=== PATIENT | female | born 1965 | race Caucasian/White ===

== ENCOUNTER → 2018-08-30 | Outpatient (CLI) | payer OTHER ==
[~2018-08-30] MED LIST: LEVSOD25 PO
== END | disposition home or self-care (01) ==
LOC: PLD 07:15 → LAB SHORT 07:15
DX: N92.0 Excessive and frequent menstruation with regular cycle (principal)
CPT/HCPCS: 88305

== ENCOUNTER 2018-09-07 12:49 | Day surgery (SDC) | payer OTHER ==
[~2018-09-07] VITALS: Ht 175.3 cm; Wt 101.2 kg
== END 2018-09-07 15:03 | disposition home or self-care (01) ==
LOC: ORSCSDS 12:49
PROVIDERS: Internal Medicine Gastroenterology
PROC: 0DJD8ZZ Inspection of Lower Intestinal Tract, Via Natural or Artificial Opening Endoscopic (ICD-10-PCS; principal; 2018-09-07 14:15)
DX: R19.4 Change in bowel habit (principal); E03.9 Hypothyroidism, unspecified; D50.9 Iron deficiency anemia, unspecified; Z79.899 Other long term (current) drug therapy
CPT/HCPCS: J2704; J7120

== ENCOUNTER 2018-10-08 08:22 | Day surgery (SDC) | payer OTHER ==
[~2018-10-08] VITALS: Ht 172.7 cm; Wt 102.2 kg
[~2018-10-08 08:22] MED LIST changes: +IRON PO
--- NOTE | 2018-10-08 08:52 | NUR ---
History, Chart, Medications and Allergies reviewed before start of procedure.Lungs clear T/O to Auscultation.
[2018-10-08 16:14] LABS: BASOPHILS ABSOLUTE AUTO 0.01 K/mm3 (0.00-0.23); BASOPHILS PERCENT AUTO 0 % (0-2); EOSINOPHILS PERCENT AUTO 0 % (0-6); Hematocrit 35.9 % (33.0-51.0); Hemoglobin 11.3 g/dL (11.5-16.0); IMMATURE GRAN ABSOLUTE AUTO 0.06 K/mm3 (0.00-0.10); IMMATURE GRAN PERCENT AUTO 0 % (0-1); LYMPHOCYTES ABSOLUTE AUTO 0.37 K/mm3 (0.84-5.20); LYMPHOCYTES PERCENT AUTO 2 % (21-46); MONOCYTES ABSOLUTE AUTO 0.11 K/mm3 (0.16-1.47); MONOCYTES PERCENT AUTO 1 % (4-13); Mean Corpuscular HGB 26.8 pg (26.0-34.0); Mean Corpuscular HGB Conc 31.5 g/dL (31.5-36.5); Mean Corpuscular Volume 85 fL (80-100); Mean Platelet Volume 10.1 fL (9.1-12.4); NEUTROPHILS ABSOLUTE AUTO 15.16 K/mm3 (1.96-9.15); NEUTROPHILS PERCENT AUTO 96 % (41-73); Platelet Count 224 K/mm3 (150-400); RDW Coefficient Variation 19.8 % (11.7-14.2); RDW Standard Deviation 62.6 fL (35.1-46.3); Red Blood Cell Count 4.21 M/mm3 (3.80-5.20); White Blood Cell Count 15.71 K/mm3 (4.00-11.30)
--- NOTE | 2018-10-08 18:47 | NUR ---
SHIFT SUMMARY PT HAS DONE WELL POST OP. HAS DECLINED PAIN OR NAUSEA MEDS. TOLERATING DIET WELL. OUT OF BED x 1. NO VAG BLEEDING.
[2018-10-09 05:49] LABS: BASOPHILS ABSOLUTE AUTO 0.02 K/mm3 (0.00-0.23); BASOPHILS PERCENT AUTO 0 % (0-2); EOSINOPHILS ABSOLUTE AUTO 0.02 K/mm3 (0.00-0.68); EOSINOPHILS PERCENT AUTO 0 % (0-6); Hematocrit 29.6 % (33.0-51.0); Hemoglobin 9.6 g/dL (11.5-16.0); IMMATURE GRAN ABSOLUTE AUTO 0.05 K/mm3 (0.00-0.10); IMMATURE GRAN PERCENT AUTO 1 % (0-1); LYMPHOCYTES ABSOLUTE AUTO 1.32 K/mm3 (0.84-5.20); LYMPHOCYTES PERCENT AUTO 12 % (21-46); MONOCYTES ABSOLUTE AUTO 0.57 K/mm3 (0.16-1.47); MONOCYTES PERCENT AUTO 5 % (4-13); Mean Corpuscular HGB 27.5 pg (26.0-34.0); Mean Corpuscular HGB Conc 32.4 g/dL (31.5-36.5); Mean Corpuscular Volume 85 fL (80-100); Mean Platelet Volume 10.4 fL (9.1-12.4); NEUTROPHILS ABSOLUTE AUTO 9.08 K/mm3 (1.96-9.15); NEUTROPHILS PERCENT AUTO 82 % (41-73); Platelet Count 186 K/mm3 (150-400); RDW Coefficient Variation 19.8 % (11.7-14.2); RDW Standard Deviation 62.7 fL (35.1-46.3); Red Blood Cell Count 3.49 M/mm3 (3.80-5.20); White Blood Cell Count 11.06 K/mm3 (4.00-11.30)
--- NOTE | 2018-10-09 07:36 | NUR ---
POD 1 S/P LAVH. PT VSS T/O NIGHT. DRESSINGS CDI, SCANT VAGINAL BLEEDING. PAIN MGD W/TORIDOL W/REP RELIEF; PT DECLINED NEED FOR ADDITIONAL PAIN MEDS. PT CASS REG PO, REP NO FLATUS YET THIS AM. OLSON CATH D/C'D, AWAITING VOID. IVF CONT. IN THIS AM, REP GIVEN TO DAY RN.
[2018-10-09] MEDS ORDERED: CLIMARA1 EACH TD (07:45)
[2018-10-09] MEDS ORDERED: IBUP800 PO (07:46)
[2018-10-09] MEDS ORDERED: ACET325 PO (09:16)
--- NOTE | 2018-10-09 10:27 | NUR ---
DISCHARGE PT HAS VOIDED x 2, TOLERATING DIET, AMBULATING, PAIN TOLERABLE. STATES UNDERSTANDING OF MEDS, WOUND CARE, & F/U.
== END 2018-10-09 10:22 | disposition home or self-care (01) ==
LOC: ORSCMMR 08:22 → ORD 09:30 → ORSCMMR 09:30 → SURS 13:32 → ORSCMMR 10-09 10:22 → SURS 10-09 10:22
PROVIDERS: Obstetrics & Gynecology
PROC: 0UT2FZZ Resection of Bilateral Ovaries, Via Natural or Artificial Opening With Percutaneous Endoscopic Assistance (ICD-10-PCS; principal; 2018-10-08 09:30)
PROC: 0UT7FZZ Resection of Bilateral Fallopian Tubes, Via Natural or Artificial Opening With Percutaneous Endoscopic Assistance (ICD-10-PCS; principal; 2018-10-08 09:30)
PROC: 0UT9FZZ Resection of Uterus, Via Natural or Artificial Opening With Percutaneous Endoscopic Assistance (ICD-10-PCS; principal; 2018-10-08 09:30)
DX: N92.0 Excessive and frequent menstruation with regular cycle (principal); D50.9 Iron deficiency anemia, unspecified; Q50.5 Embryonic cyst of broad ligament; D25.9 Leiomyoma of uterus, unspecified; N83.12 Corpus luteum cyst of left ovary; Z80.41 Family history of malignant neoplasm of ovary; E03.9 Hypothyroidism, unspecified; Z79.899 Other long term (current) drug therapy
CPT/HCPCS: 36415; 85025; 88307; J0690; J1100; J1885; J2250; J2370; J2405; J2704; J2710; J3010; J7030; J7120

== ENCOUNTER → 2023-03-29 | Outpatient (CLI) | payer OTHER ==
[~2023-03-29] MED LIST changes: +ACET325 PO; +CLIMARA1 EACH TD; +IBUP800 PO
== END | disposition home or self-care (01) ==
LOC: LAB 08:45 → LAB SHORT 08:45
DX: F41.1 Generalized anxiety disorder (principal)
CPT/HCPCS: 84443

== ENCOUNTER → 2024-12-05 | Outpatient (CLI) | payer OTHER ==
[2024-12-05 16:18] LABS: BASOPHILS ABSOLUTE AUTO 0.05 K/mm3 (0.00-0.23); BASOPHILS PERCENT AUTO 1 % (0-2); EOSINOPHILS ABSOLUTE AUTO 0.16 K/mm3 (0.00-0.68); EOSINOPHILS PERCENT AUTO 3 % (0-6); Hematocrit 40.2 % (33.0-51.0); Hemoglobin 13.4 g/dL (11.5-16.0); IMMATURE GRAN ABSOLUTE AUTO 0.01 K/mm3 (0.00-0.10); IMMATURE GRAN PERCENT AUTO 0 % (0-1); LYMPHOCYTES ABSOLUTE AUTO 1.58 K/mm3 (0.84-5.20); LYMPHOCYTES PERCENT AUTO 34 % (21-46); MONOCYTES ABSOLUTE AUTO 0.40 K/mm3 (0.16-1.47); MONOCYTES PERCENT AUTO 9 % (4-13); Mean Corpuscular HGB Conc 33.3 g/dL (31.5-36.5); Mean Corpuscular Volume 89 fL (80-100); NEUTROPHILS ABSOLUTE AUTO 2.48 K/mm3 (1.96-9.15); NEUTROPHILS PERCENT AUTO 53 % (41-73); NRBC ABSOLUTE 0.00 K/mm3 (0.00-0.02); NRBC Auto 0.0 /100 WBC (0.0-0.2); Platelet Count 178 K/mm3 (150-400); RDW Coefficient Variation 13.2 % (11.7-14.2); RDW Standard Deviation 43.0 fL (35.1-46.3)
[2024-12-05 17:34] LABS: Alanine Aminotransfer (ALT/SGP 34 U/L (12-78); Albumin, Blood 4.1 g/dL (3.4-5.0); Albumin/Globulin Ratio 1.4 (0.8-1.8); Anion Gap 4 mmol/L (3-11); Aspartate Aminotrans (AST/SGOT 20 U/L (12-37); Bilirubin, Total 0.3 mg/dL (0.1-1.0); Blood Urea Nitrogen 18 mg/dL (8-24); CHOL/HDL RATIO 3.2; CO2, Blood 31 mmol/L (21-32); Calcium, Blood 9.0 mg/dL (8.5-10.1); Chloride, Blood 108 mmol/L (98-108); Cholesterol 206 mg/dL (50-200); Globulin, Blood 2.9 g/dL (2.2-4.0); Glucose, Blood 118 mg/dL (70-99); HDL Cholesterol 65 mg/dL (>39); LDL/HDL RATIO 2.0; Low Density Lipoprotein Chol 128 mg/dL (0-110); Potassium, Blood 4.1 mmol/L (3.5-5.5); Sodium, Blood 139 mmol/L (136-145); Total Protein, Blood 7.0 g/dL (6.4-8.2); Triglycerides 64 mg/dL (30-160); Very Low Density Lipoprot Chol 12 mg/dL (6-32)
[2024-12-05 17:40] LABS: Creatinine, Blood 0.64 mg/dL (0.40-1.00); Thyroid Stimulating Hormone 0.863 uIU/mL (0.360-4.800)
== END | disposition home or self-care (01) ==
LOC: LAB 14:41 → LAB SHORT 14:41
PROVIDERS: Internal Medicine
DX: Z00.00 Encounter for general adult medical examination without abnormal findings (principal); Z13.6 Encounter for screening for cardiovascular disorders; E03.9 Hypothyroidism, unspecified
CPT/HCPCS: 80053; 80061; 84443; 85025

== ENCOUNTER 2024-12-22 18:51 | Inpatient (IN) | payer OTHER ==
[~2024-12-22] VITALS: Ht 175.3 cm; Wt 108.9 kg
[2024-12-22] MEDS ORDERED: ESCI10 PO (19:03)
[2024-12-22] MEDS ORDERED: Ondansetron HCl 2 MG / ML 2ML Vial IV ONE (19:10)
[2024-12-22] MEDS ORDERED: FentaNYL Citrate 50 MCG/ML 2 ML Injection IV ONE ×2 (19:10→20:10)
[2024-12-22] MEDS ORDERED: FentaNYL Citrate 50 MCG/ML 2 ML Injection IV PRN (22:45)
[2024-12-22] MEDS ORDERED: Ondansetron HCl 2 MG / ML 2ML Vial IV PRN (22:45)
[2024-12-22] MEDS ORDERED: Ketorolac Tromethamine 15mg Vial IV PRN (23:10)
[2024-12-23 00:34] VITALS: BP 144/75
--- NOTE | 2024-12-23 03:25 | NUR ---
SHIFT SUMMARY PATIENT APPEARS TO BE SLEEPING COMFORTABLY AT THIS TIME. SHE HAS HAD TORADOL AND TYLENOL FOR PAIN CONTROL SINCE BEING ADMITTED TO THE MEDICAL FLOOR. PATIENT KNOWS SHE CAN ALSO HAVE IV FENTANYL AND SHE DOES NOT WANT A NARCOTIC RIGHT NOW. PATIENT IS ORIENTED X4. VITAL SIGNS ARE STABLE. PUREWICK CATHETER IS IN PLACE. SAFETY PRECAUTIONS ARE BEING MAINTAINED.
[2024-12-23 04:39] VITALS: BP 118/61
[2024-12-23 05:51] LABS: BASOPHILS ABSOLUTE AUTO 0.04 K/mm3 (0.00-0.23); BASOPHILS PERCENT AUTO 0 % (0-2); EOSINOPHILS ABSOLUTE AUTO 0.08 K/mm3 (0.00-0.68); EOSINOPHILS PERCENT AUTO 1 % (0-6); Hematocrit 36.3 % (33.0-51.0); Hemoglobin 12.2 g/dL (11.5-16.0); IMMATURE GRAN ABSOLUTE AUTO 0.02 K/mm3 (0.00-0.10); IMMATURE GRAN PERCENT AUTO 0 % (0-1); LYMPHOCYTES ABSOLUTE AUTO 1.18 K/mm3 (0.84-5.20); LYMPHOCYTES PERCENT AUTO 13 % (21-46); MONOCYTES ABSOLUTE AUTO 0.54 K/mm3 (0.16-1.47); MONOCYTES PERCENT AUTO 6 % (4-13); Mean Corpuscular HGB Conc 33.6 g/dL (31.5-36.5); Mean Corpuscular Volume 88 fL (80-100); NEUTROPHILS ABSOLUTE AUTO 7.55 K/mm3 (1.96-9.15); NEUTROPHILS PERCENT AUTO 80 % (41-73); NRBC ABSOLUTE 0.00 K/mm3 (0.00-0.02); NRBC Auto 0.0 /100 WBC (0.0-0.2); Platelet Count 156 K/mm3 (150-400); RDW Coefficient Variation 13.3 % (11.7-14.2); RDW Standard Deviation 42.9 fL (35.1-46.3)
[2024-12-23 06:14] LABS: Alanine Aminotransfer (ALT/SGP 39.0 U/L (12-78); Albumin, Blood 3.7 g/dL (3.4-5.0); Albumin/Globulin Ratio 1.2 (0.8-1.8); Anion Gap 8.0 mmol/L (3-11); Aspartate Aminotrans (AST/SGOT 29.0 U/L (12-37); Bilirubin, Total 0.6 mg/dL (0.1-1.0); Blood Urea Nitrogen 17.0 mg/dL (8-24); CO2, Blood 27.0 mmol/L (21-32); Calcium, Blood 8.7 mg/dL (8.5-10.1); Chloride, Blood 107.0 mmol/L (98-108); Creatinine, Blood 0.66 mg/dL (0.40-1.00); Globulin, Blood 3.2 g/dL (2.2-4.0); Glucose, Blood 139.0 mg/dL (70-99); Magnesium, Blood 2.0 mg/dL (1.6-2.4); Potassium, Blood 3.7 mmol/L (3.5-5.5); Sodium, Blood 138.0 mmol/L (136-145); Total Protein, Blood 6.9 g/dL (6.4-8.2)
[2024-12-23 07:08] VITALS: BP 130/71
[2024-12-23] MEDS ORDERED: Heparin Sodium,Porcine 5,000 UNIT/0.5 ML SDV SC SCH (09:00)
[2024-12-23 15:46] VITALS: BP 132/67
--- NOTE | 2024-12-23 17:01 | NUR ---
SHIFT SUMMARY PT AOX4, BR AT THIS TIME. REPOSITIONS SELF IN BED. MEDICATED FOR PAIN PER THE EMAR. SHE CALLS AND MAKES HER NEEDS KNOWN. APPETITE OKAY. FAMILY AT THE THIS SHIFT. WAITING ON TRANSFER TO [facility]. NO UPDATES YET. CALL LIGHT WITHIN REACH, BED LOCKED AND IN THE LOWEST POSITION. WILL REPORT TO ONCOMING NURSE.
[2024-12-23 20:05] VITALS: BP 107/64
[2024-12-24 03:24] VITALS: BP 122/74
--- NOTE | 2024-12-24 04:57 | NUR ---
Shift Summary AOx4. Pain is quite severe, especially w/ movement. Patient barely able to tolerate rolling in bed and changing linens d/t pain. Also c/o painful tightness to L calf. Removed one side of the velcro on the selina wrap and slightly loosened the end portion of the selina wrap; this seemed to be effective because pt verbalized improvement with pain/tightness. Circulation, movement, and sensation to affected leg (left), all are intact. Patient endorses chronic intermittent tingling to LLE that is not always present. Slept through the night. Takes meds whole w/water. Medicated for pain x [address] in place and attached to wall suction. suction.
[2024-12-24 05:28] LABS: BASOPHILS ABSOLUTE AUTO 0.05 K/mm3 (0.00-0.23); BASOPHILS PERCENT AUTO 1 % (0-2); EOSINOPHILS ABSOLUTE AUTO 0.27 K/mm3 (0.00-0.68); EOSINOPHILS PERCENT AUTO 4 % (0-6); Hematocrit 36.0 % (33.0-51.0); Hemoglobin 11.8 g/dL (11.5-16.0); IMMATURE GRAN ABSOLUTE AUTO 0.01 K/mm3 (0.00-0.10); IMMATURE GRAN PERCENT AUTO 0 % (0-1); LYMPHOCYTES ABSOLUTE AUTO 1.58 K/mm3 (0.84-5.20); LYMPHOCYTES PERCENT AUTO 24 % (21-46); MONOCYTES ABSOLUTE AUTO 0.51 K/mm3 (0.16-1.47); MONOCYTES PERCENT AUTO 8 % (4-13); Mean Corpuscular HGB Conc 32.8 g/dL (31.5-36.5); Mean Corpuscular Volume 90 fL (80-100); NEUTROPHILS ABSOLUTE AUTO 4.25 K/mm3 (1.96-9.15); NEUTROPHILS PERCENT AUTO 64 % (41-73); NRBC ABSOLUTE 0.00 K/mm3 (0.00-0.02); NRBC Auto 0.0 /100 WBC (0.0-0.2); Platelet Count 132 K/mm3 (150-400); RDW Coefficient Variation 13.3 % (11.7-14.2); RDW Standard Deviation 44.3 fL (35.1-46.3)
[2024-12-24 05:54] LABS: Anion Gap 3.0 mmol/L (3-11); Blood Urea Nitrogen 17.0 mg/dL (8-24); CO2, Blood 33.0 mmol/L (21-32); Calcium, Blood 8.5 mg/dL (8.5-10.1); Chloride, Blood 104.0 mmol/L (98-108); Creatinine, Blood 0.89 mg/dL (0.40-1.00); Glucose, Blood 127.0 mg/dL (70-99); Potassium, Blood 3.4 mmol/L (3.5-5.5); Sodium, Blood 137.0 mmol/L (136-145)
[2024-12-24 07:23] VITALS: BP 127/68
[2024-12-24] MEDS ORDERED: Polyethylene Glycol 3350 17 gm PO PRN (07:50)
--- NOTE | 2024-12-24 13:55 | NUR ---
PT WOKE FOR SHIFT REPORT THIS AM. ADMITTED FOR L TIB/FIB FX FROM FALLING OFF LADDER AT HOME. PT WAITING TO BE TX'D TO [facility] WHEN BED AVAILABLE. PT FREQUENTLY WET WITH URINE, BUT REFUSING TO TURN OR ROLL TO SIDE TO BE CLEANED. PT REFUSING TO ASSIST OR BE TURNED TO CHANGE LINEN EITHER. PT MEDICATED PER EMAR AND THEN COMFORTABLE AND NOT WANTING TO MOVE. STAFF ATTEMPTED TO EDU PT ON SKIN BREAKDOWN SEVERAL TIMES WHEN PT REFUSED TO ALLOW BUTTOCKS TO BE CLEANED. NO BM SINCE ; MIRALAX AND SENNA GIVEN PER EMAR. PT'S ALSO VERY RUDE AND DEMANDING TO STAFF ON MULTIPLE OCCASSIONS. CALL LT IN REACH.
[2024-12-24 15:11] VITALS: BP 132/61
[2024-12-24 15:38] VITALS: BP 132/61
[2024-12-24 15:58] VITALS: BP 132/61
--- NOTE | 2024-12-24 17:02 | NUR ---
pt has a room at [facility] in [facility], transport here to [place], medicated with 50mcg fentanyl prior to moving her to the [facility], she mostly moved herself with staff holding her leg, left with her belongings, report was given to recieving nurse. piv to jeimy was left in place.
== END 2024-12-24 16:50 | disposition short-term general hospital (02) | DRG 563 ==
LOC: ER 18:51 → MEDS 23:12
PROVIDERS: ADMIT Student in an Organized Health Care Education/Training Program
DX: S82.252A Displaced comminuted fracture of shaft of left tibia, initial encounter for closed fracture (principal); S82.452A Displaced comminuted fracture of shaft of left fibula, initial encounter for closed fracture; E03.9 Hypothyroidism, unspecified; J45.909 Unspecified asthma, uncomplicated; D50.9 Iron deficiency anemia, unspecified; F41.9 Anxiety disorder, unspecified; Z88.2 Allergy status to sulfonamides; Z88.0 Allergy status to penicillin; Z88.5 Allergy status to narcotic agent; Z90.710 Acquired absence of both cervix and uterus; Z90.722 Acquired absence of ovaries, bilateral; Z79.890 Hormone replacement therapy; Z79.899 Other long term (current) drug therapy; Z98.891 History of uterine scar from previous surgery; W11.XXXA Fall on and from ladder, initial encounter
CPT/HCPCS: 29505; 36415; 73590; 80048; 80053; 83735; 85025; 94762; 96372; 96374-59; 96375; 96375-59; 96376; 96376-59; 99285-25; A9270; G0378; J1644; J1885; J2405; J3010

== ENCOUNTER → 2025-04-07 | Outpatient (CLI) | payer OTHER ==
[~2025-04-07] MED LIST changes: +ESCI10 PO
[2025-04-07 14:36] LABS: BASOPHILS ABSOLUTE AUTO 0.04 K/mm3 (0.00-0.23); BASOPHILS PERCENT AUTO 1 % (0-2); EOSINOPHILS ABSOLUTE AUTO 0.12 K/mm3 (0.00-0.68); EOSINOPHILS PERCENT AUTO 2 % (0-6); Hematocrit 40.2 % (33.0-51.0); Hemoglobin 13.2 g/dL (11.5-16.0); IMMATURE GRAN ABSOLUTE AUTO 0.01 K/mm3 (0.00-0.10); IMMATURE GRAN PERCENT AUTO 0 % (0-1); LYMPHOCYTES ABSOLUTE AUTO 1.27 K/mm3 (0.84-5.20); LYMPHOCYTES PERCENT AUTO 22 % (21-46); MONOCYTES ABSOLUTE AUTO 0.39 K/mm3 (0.16-1.47); MONOCYTES PERCENT AUTO 7 % (4-13); Mean Corpuscular HGB Conc 32.8 g/dL (31.5-36.5); Mean Corpuscular Volume 85 fL (80-100); NEUTROPHILS ABSOLUTE AUTO 4.04 K/mm3 (1.96-9.15); NEUTROPHILS PERCENT AUTO 69 % (41-73); NRBC ABSOLUTE 0.00 K/mm3 (0.00-0.02); NRBC Auto 0.0 /100 WBC (0.0-0.2); Platelet Count 315 K/mm3 (150-400); RDW Coefficient Variation 13.3 % (11.7-14.2); RDW Standard Deviation 41.2 fL (35.1-46.3)
== END ==
LOC: LAB 13:18 → LAB SHORT 13:18
PROVIDERS: Hospitalist
DX: L03.90 Cellulitis, unspecified (principal)
CPT/HCPCS: 85025; 85651; 86140

== ENCOUNTER → 2025-05-11 | Outpatient (CLI) | payer OTHER | LOC: LAB SHORT 19:30 → LAB 19:30 | DX: L02.91 Cutaneous abscess, unspecified (principal) | CPT/HCPCS: 87070; 87075; 87077; 87186; 87205 ==

== ENCOUNTER → 2025-05-31 | Outpatient (CLI) | payer OTHER | END | disposition home or self-care (01) | LOC: LAB SHORT 10:45 → LAB 10:45 | DX: L02.416 Cutaneous abscess of left lower limb (principal) | CPT/HCPCS: 87070; 87075; 87077; 87186; 87205 ==